=== PATIENT | male | born 1975 | race Two or more races ===

== ENCOUNTER 2023-12-31 09:40 | Emergency (ER) | payer OTHER ==
[~2023-12-31] VITALS: Ht 180.3 cm; Wt 101.0 kg
[2023-12-31 14:00] VITALS: PULSE 88; RESP 20; O2SAT 97
[2023-12-31 14:09] LABS: Basophils # (auto) 0 10 ^3/uL (0-0.2); Basophils % (auto) 0.4 % (0.0-2.0); Eosinophils # (auto) 0.1 10 ^3/uL (0-0.8); Eosinophils % (auto) 0.6 % (0.0-7.0); Hemoglobin 9.1 g/dL (13.5-17.5); Lymphocytes # (auto) 0.8 10 ^3/uL (0.4-5.4); Lymphocytes % (auto) 9.6 % (10.0-50.0); Mean Corpuscular Hemoglobin 29.3 pg (28.0-32.0); Mean Corpuscular Hgb Conc. 35.2 g/dL (32.0-36.0); Mean Corpuscular Volume 83.4 fL (80.0-100.0); Monocytes # (auto) 0.7 10 ^3/uL (0-1.3); Monocytes % (auto) 9.3 % (0.0-12.0); Neutrophils # (auto) 6.3 10 ^3/uL (1.6-8.6); Neutrophils % (auto) 80.1 % (37.0-80.0); Red Blood Cells 3.12 10^6/uL (4.5-5.90); Red Cell Distribution Width 14.2 % (11.8-14.3); White Blood Cell 7.9 10^3/uL (4.4-10.8)
[2023-12-31 14:20] LABS: Chloride 106 mmol/L (98-107); Potassium 3.7 mmol/L (3.5-5.1); Sodium 139 mmol/L (136-145)
[2023-12-31 14:21] LABS: Anion Gap 7 (5-15); Calcium 9.2 mg/dL (8.7-10.4); Carbon Dioxide 26 mmol/L (20-30)
[2023-12-31 14:26] LABS: BUN/Creatinine Ratio 12.3 (10.0-20.0); Blood Urea Nitrogen 9 mg/dL (9-23); Glucose 155 mg/dL (74-106)
[2023-12-31] MEDS: IOHEXOL 300 MG/ML 100ML BOTTLE IJ ONE (15:45)
[2023-12-31 16:40] VITALS: BP 154/89; PULSE 84; RESP 16; TEMP 97.4; O2SAT 96
== END 2023-12-31 17:32 | disposition short-term general hospital (02) ==
LOC: ER 09:40
DX: S36.039A Unspecified laceration of spleen, initial encounter (principal); Z88.1 Allergy status to other antibiotic agents; V89.2XXA Person injured in unspecified motor-vehicle accident, traffic, initial encounter; Y93.89 Activity, other specified; Y92.89 Other specified places as the place of occurrence of the external cause; Y99.8 Other external cause status
CPT/HCPCS: 36415; 71250; 74176; 74177; 80048; 85025; 99285; Q9967

== ENCOUNTER 2024-04-18 12:43 | Observation (INO) | payer OTHER ==
[~2024-04-18] VITALS: Ht 175.3 cm; Wt 102.6 kg
--- NOTE | 2024-04-18 14:16 | ED.PDOC ---
Musculoskeletal HPI Comments HPI: Poor Historian. 49-year-old male presents to emergency department for two day history of noticing left groin mass which she calls lymph node and associated diffuse left lower extremity pain. Patient ambulating independently ED. Denies any other associated symptoms. This never happened before. PMH: denies, PSH: spleen rupture SOCIAL HISTORY: denies tobacco use, endorses etoh use, denies drug use MEDS; denies ALLERGIES; nkda VITALS; TEMP: 98.6 F HEART RATE; 89 02 SAT; 98% on room air RR; 20 BP; 120/75 REVIEW OF SYSTEMS: CONSTITUTIONAL: Denies acute: fever, diaphoresis, chills, generalized weakness. HEAD: Denies acute: headache, photophobia Eyes: Denies acute: Double vision, vision loss, eye pain, eye discharge. EARS: Denies acute: tinnitus, hearing loss, ear discharge, ear pain, THROAT: Denies acute: sore throat, swelling, difficulty swallowing , pain with swallowing, change in voice. NECK: Denies acute: neck pain, neck swelling, stiff neck. HEART: Denies acute : chest pain, palpitations, LUNGS: Denies acute: SOB, wheezing, cough, hemoptysis ABDOMEN: Denies acute: abdominal pain, Nausea, Vomiting, diarrhea, melena , hematemesis, hematochezia SKIN: Denies acute: rash, redness, lesions, itchiness. EXTREMITIES: Denies acute: calf pain, numbness, tingling, weakness, Denies acute: Low back pain. Neuro: Denies acute: focal neurological deficit, motor or sensory focal neurological deficit, tremors, seizure like activity, confusion, dizziness, change in mental status, loss of bowel or bladder function, cauda equina like symptoms. : Denies acute: dysuria, hematuria, flank pain, increase in urinary frequency. PSYCH: Denies acute: hallucination, suicidal ideation, homicidal ideation. PHYSICAL EXAM: General: no acute distress, awake and alert. Head: normocephalic, atraumatic. Neck: supple, trachea is midline, no swelling. Throat: Normal phonation. Eyes:, no erythema, no purulent discharge, no proptosis, no icterus. Heart: regular rate, regular rhythm, no significant murmur appreciated. Lungs: no apparent respiratory distress, Able to speak in full sentences. No wheezing, no rhonchi, no crackles. No stridors Clear to auscultation bilaterally. Abdomen: non tender to palpation, non distended, soft, no guarding, no rebound, + bowel sounds. Noted left inguinal palpable mass tender to palpation. Neuro: Awake, Alert, oriented to name, self, situation, follows commands GCS=15. Speech is normal. Skin: no petechia, no purpura, no cyanosis, non-pale, not jaundice. Lower extremities: --3/4 left lower extremity - Pitting edema no deformity, no focal swelling, no calf TTP. Pedal pulses are palpable. Patient is neurovascularly intact in the affected extremity. Motor and sensory are present. Makes eye contact. moves all four extremities. Face: no apparent facial droop. Ambulating in the ED independently. Time Seen by MD: 14:33 Reviewed Notes: Nurses Notes, Allergies Allergies: Coded Allergies: NO KNOWN ALLERGIES (Unverified , 04/18/24) Information Source: Patient, Spouse Mode of Arrival: Ambulatory Brought in by: spouse Location: Left Past Medical History PAST MEDICAL HISTORY: Denies Surgical History (Other): spleen Family History Family History: Reviewed,noncontributory to illness Social History Smoker: Non-Smoker Alcohol: Occasionally Drugs: Denies Drug Use Lives In: Home Was a procedure done? Was a procedure done?: No Differential Diagnosis EXT Differential Diagnosis: Cellulitis, CHF, Deep Vein Thrombosis, Compartment Syndrome, Fracture, Sprain, Gout, DJD, Myocardial Infarction, Contusion, Strain, Septic, Neurovascular injury, Arthritis, Other (Leg swellingDdx include but not limited to DVT, ischemic limb, pitting edema, volume overload, CHF, cellulitis, hematoma, compartment syndrome, dependent edema, venous stasis.) X-Ray, Labs, Meds, VS Vital Signs Date Time Temp Pulse Resp B/P (MAP) Pulse Ox O2 Delivery O2 Flow Rate FiO2 04/18/24 13:28 98.6 89 20 120/75 (90) 98 Lab Test 04/18/24 15:17 04/18/24 14:30 Range/Units Troponin I High Sensitivity < 3 L < 3 L </=54 ng/L White Blood Count 7.5 4.4-10.8 10^3/uL Red Blood Count 4.43 L 4.5-5.90 10^6/uL Hemoglobin 12.8 L 13.5-17.5 g/dL Hematocrit 36.8 L 41.0-53.0 % Mean Corpuscular Volume 83.1 80.0-100.0 fL Mean Corpuscular Hemoglobin 28.9 28.0-32.0 pg Mean Corpuscular Hemoglobin Concent 34.8 32.0-36.0 g/dL Red Cell Distribution Width 15.5 H 11.8-14.3 % Platelet Count 262 140-450 10^3/uL Mean Platelet Volume 8.2 6.9-10.8 fL Neutrophils (%) (Auto) 73.5 37.0-80.0 % Lymphocytes (%) (Auto) 11.1 10.0-50.0 % Monocytes (%) (Auto) 10.7 0.0-12.0 % Eosinophils (%) (Auto) 4.0 0.0-7.0 % Basophils (%) (Auto) 0.7 0.0-2.0 % Neutrophils # (Auto) 5.5 1.6-8.6 10 ^3/uL Lymphocytes # (Auto) 0.8 0.4-5.4 10 ^3/uL Monocytes # (Auto) 0.8 0-1.3 10 ^3/uL Eosinophils # (Auto) 0.3 0-0.8 10 ^3/uL Basophils # (Auto) 0.1 0-0.2 10 ^3/uL Nucleated Red Blood Cells 0.1 % D-Dimer, Quantitative 0.39 0.0-0.49 mg/L FEU Sodium Level 141 136-145 mmol/L Potassium Level 3.8 3.5-5.1 mmol/L Chloride Level 107 98-107 mmol/L Carbon Dioxide Level 26 20-31 mmol/L Anion Gap 8 5-15 Blood Urea Nitrogen 9 9-23 mg/dL Creatinine 0.89 0.700-1.30 mg/dL Glomerular Filtration Rate Calc 104 >90 mL/min BUN/Creatinine Ratio 10.1 10.0-20.0 Serum Glucose 144 H 74-106 mg/dL Lactic Acid Level 0.8 0.4-2.0 mmol/L Calcium Level 9.6 8.7-10.4 mg/dL Total Bilirubin 1.0 0.2-1.0 mg/dL Aspartate Amino Transferase (AST) 15 13-40 U/L Alanine Aminotransferase (ALT) 33 7-40 U/L Alkaline Phosphatase 178 H 46-116 U/L B-Type Natriuretic Peptide 56.21 0-100 pg/mL Total Protein 7.2 5.7-8.2 g/dL Albumin 4.2 3.2-4.8 g/dL [facility] [id number] [place] [id number] Ph: [phone] DIAGNOSTIC IMAGING Diagnostic Imaging Report : [id number] Signed PATIENT: SANDRA BROOKEACCT: [id number] UNIT: [id number] : 1975 LOC: ER ROOM / BED: / AGE / SEX: 49 / M ADM STATUS: REG ER SERVICE 19 ORDERING PHYSICIAN: ASHVIN PERDOMO DO PROCEDURE(s): LLDVT - LT Lower DVT REASON: Leg pain and swelling ORDER NUMBER(s): [id number], ACCESSION NUMBER(s): [id number] Procedure: US LT Lower DVT Study Date and Requested Time: 04/18/2024 02:53 PM History: Leg pain and swelling Comparison: None Technique: Multiple high resolution velásquez-scale images with and without compression obtained of the left lower extremity veins, including the common femoral vein, deep femoral vein, proximal mid and distal superficial femoral vein, and popliteal vein. Additional limited images of the greater saphenous vein also obtained. Augmentation performed as indicated. Color and spectral doppler flow images obtained as indicated. Findings: No visible intraluminal venous thrombus. No evidence of incompressibility or a bnormal color or spectral Doppler flow visualized in the left lower extremity veins including, the common femoral vein, deep femoral vein, proximal mid and distal superficial femoral vein, and popliteal vein. Greater saphenous vein grossly unremarkable. Prominent bilateral inguinal lymph nodes measuring up to 2.8 cm on the left and 2.6 cm on the right in short axis Impression: No sonographic evidence of left lower extremity deep venous thrombosis. ATED BY: MABLE BAEZ DO DICTATED DATE/TIME: 04/18/24 1523 SIGNED BY: MABLE BAEZ DO SIGNED DATE/TIME: 04/18/24 152 CC: [facility] [id number] [place] [id number] Ph: [phone] DIAGNOSTIC IMAGING Diagnostic Imaging Report : [id number] Signed PATIENT: SANDRA BROOKEACCT: [id number] UNIT: [id number] : 1975 LOC: ER ROOM / BED: / AGE / SEX: 49 / M ADM STATUS: REG ER SERVICE [id number] ORDERING PHYSICIAN: ASHVIN PERDOMO DO PROCEDURE(s): CTAAA - CT ANGIO ABD AORTA W RUN OFF REASON: LLE pain swelling ORDER NUMBER(s): [id number], ACCESSION NUMBER(s): [id number] Examination: CT CT ANGIO ABD AORTA W RUN OFF CLINICAL HISTORY: LLE pain swelling Comparison: None Technique: Using helical technique, CT data from the lower abdomen through the toes was obtained during rapid IV contrast infusion. The examination was timed to the arterial system to generate a CT angiographic study. 3D images were generated at an independent work station. Dose reduction techniques included automated exposure control. Radiation Dose Information: CT Dose: CTDI volume is 27.63 mGy. Dose-length product is 1545.21 mGy*cm CONTRAST: Type of contrast: Omni 350 Contrast injected: 100 ml Findings: Distal abdominal aorta: Normal caliber, patent NICK: Patent Right lower extremity: Common iliac artery: Patent External iliac artery: Patent Internal iliac artery: Patent Common femoral artery: Patent Profunda femoral artery: Patent Superficial femoral artery: Patent Popliteal artery: Patent Anterior tibial artery: Patent Peroneal tibial trunk: Patent Peroneal artery: Patent Posterior tibial artery: Patent Dorsalis pedis artery: Patent Left lower extremity: Common iliac artery: Patent External iliac artery: Patent Internal iliac artery: Patent Common femoral artery: Patent Profunda femoral artery: Patent Superficial femoral artery: Patent Popliteal artery: Patent Anterior tibial artery: Patent Peroneal tibial trunk: Patent Peroneal artery: Patent Posterior tibial artery: Patent Dorsalis pedis artery: Patent Pelvis: Bladder: Normal. GI System: Stomach, small bowel, and large bowel are normal in caliber without w all thickening or dilation Appendix is normal. Lymph nodes: Extensive retroperitoneal, iliac chain, and bilateral inguinal lym phadenopathy. Largest lymph node is left external iliac and measures up to 38 mm. Peritoneal cavity and surface: No free fluid. No pneumoperitoneum. Soft Tissues: Left lower extremity edema. Reproductive Organs: Normal. Bones: No acute fracture or aggressive osseous lesion. Impression: Right Lower Extremity: 1. Patent inflow 2. Patent outflow 3. Patent 3 vessel runoff Left Lower Extremity: 1. Patent inflow 2. Patent outflow 3. Patent 3 vessel runoff Pelvis: 1. Extensive retroperitoneal, iliac chain, and inguinal lymphadenopathy concerning for lymphoproliferative disorder. Recommend ultrasound-guided biopsy of an inguinal lymph node for tissue diagnosis. Subcutaneous edema in the left lower leg. HS:Y ATED BY: GET VERMA MD DICTATED DATE/TIME: 04/18/241701 SIGNED BY: GET VERMA MD SIGNED DATE/TIME: 04/18/241701 CC: Time of 1ST Reevaluation: 19:54 (The case was discussed with the admitting team (HPI, physical exam, labs and diagnostic tests that were available at the time of disposition, ED course, treatment plan) on the phone. They requested that I consult General surgery 1st and if they are willing to do the biopsy she will admit. Dr. Saavedra. General surgery was paged at this time) Reevaluation 1ST: Unchanged Time of 2ND Reevaluation: 20:06 (I discussed the case with the general surgeon on the phone Dr. GARIBAY. He said this she would go to Interventional Radiology 1st and if they are unable to need complete excision lymph node then that is when he can be consulted. I called Dr. Saavedra to notify her.) Time of 3RD Reevaluation: 20:24 (Dr. Saavedra agreed to admit and she will consult Interventional Radiology.) Reevaluation 3RD: Unchanged Patient Education/Counseling: Diagnosis, Treatment Family Education/Counseling: Diagnosis, Treatment Departure 1 Departure Time of Disposition: 17:52 Impression: Primary Impression: Lymphoproliferative disorder Additional Impression: Left leg pain Disposition: 09 ADMITTED INPATIENT Admit to: Tele Condition: Guarded Discharged With: Self Critical Care Note Critical Care Time?: No I personally scribed for ASHVIN PERDOMO DO ([facility]) on 04/18/24 at 14:16. Electronically submitted by Shala WORRELL). I personally scribed for ASHVIN PERDOMO DO ([facility]) on 04/18/24 at 14:35. Electronically submitted by [facility] Figueroa ([facility] I personally scribed for ASHVIN PERDOMO DO ([facility]) on 04/18/24 at 15:55. Electronically submitted by Shala Figueroa ([facility]). I personally scribed for ASHVIN PERDOMO DO ([facility]) on 04/18/24 at 19:00. Electronically submitted by Shala Figueroa ([facility]). ASHVIN PERDOMO DO Apr 18, 2024 14:16
[2024-04-18 14:56] LABS: Basophils # (auto) 0.1 10 ^3/uL (0-0.2); Basophils % (auto) 0.7 % (0.0-2.0); Eosinophils # (auto) 0.3 10 ^3/uL (0-0.8); Hematocrit 36.8 % (41.0-53.0); Hemoglobin 12.8 g/dL (13.5-17.5); Lymphocytes # (auto) 0.8 10 ^3/uL (0.4-5.4); Lymphocytes % (auto) 11.1 % (10.0-50.0); Mean Corpuscular Hemoglobin 28.9 pg (28.0-32.0); Mean Corpuscular Hgb Conc. 34.8 g/dL (32.0-36.0); Mean Corpuscular Volume 83.1 fL (80.0-100.0); Monocytes # (auto) 0.8 10 ^3/uL (0-1.3); Monocytes % (auto) 10.7 % (0.0-12.0); Neutrophils # (auto) 5.5 10 ^3/uL (1.6-8.6); Neutrophils % (auto) 73.5 % (37.0-80.0); Nucleated Red Blood Cells % 0.1 %; Platelet Count (auto) 262 10^3/uL (140-450); Red Blood Cells 4.43 10^6/uL (4.5-5.90); Red Cell Distribution Width 15.5 % (11.8-14.3); White Blood Cell 7.5 10^3/uL (4.4-10.8)
[2024-04-18 15:11] LABS: Alanine Aminotransferase 33 U/L (7-40); Albumin 4.2 g/dL (3.2-4.8); Alkaline Phosphatase 178 U/L (46-116); Anion Gap 8 (5-15); BUN/Creatinine Ratio 10.1 (10.0-20.0); Blood Urea Nitrogen 9 mg/dL (9-23); Calcium 9.6 mg/dL (8.7-10.4); Carbon Dioxide 26 mmol/L (20-31); Chloride 107 mmol/L (98-107); Glucose 144 mg/dL (74-106); Potassium 3.8 mmol/L (3.5-5.1); Sodium 141 mmol/L (136-145)
[2024-04-18 15:12] LABS: Aspartate Aminotransferase 15 U/L (13-40); Total Protein 7.2 g/dL (5.7-8.2)
[2024-04-18] MEDS: IOHEXOL 350 MG/ML 100ML IJ ONE (15:24)
--- NOTE | 2024-04-18 15:26 | DVH ---
Procedure: US LT Lower DVT Study Date and Requested Time: 04/18/2024 02:53 PM History: Leg pain and swelling Comparison: None Technique: Multiple high resolution velásquez-scale images with and without compression obtained of the le ft lower extremity veins, including the common femoral vein, deep femoral vein, proximal mid and dist al superficial femoral vein, and popliteal vein. Additional limited images of the greater saphenous v ein also obtained. Augmentation performed as indicated. Color and spectral doppler flow images obtain ed as indicated. Findings: No visible intraluminal venous thrombus. No evidence of incompressibility or abnormal color or spectr al Doppler flow visualized in the left lower extremity veins including, the common femoral vein, deep femoral vein, proximal mid and distal superficial femoral vein, and popliteal vein. Greater saphenou s vein grossly unremarkable. Prominent bilateral inguinal lymph nodes measuring up to 2.8 cm on the left and 2.6 cm on the right i n short axis Impression: No sonographic evidence of left lower extremity deep venous thrombosis.
--- NOTE | 2024-04-18 17:06 | DVH ---
Examination: CT CT ANGIO ABD AORTA W RUN OFF CLINICAL HISTORY: LLE pain swelling Comparison: None Technique: Using helical technique, CT data from the lower abdomen through the toes was obtained duri ng rapid IV contrast infusion. The examination was timed to the arterial system to generate a CT reena ographic study. 3D images were generated at an independent work station. Dose reduction techniques in cluded automated exposure control. Radiation Dose Information: CT Dose: CTDI volume is 27.63 mGy. Dose-length product is 1545.21 mGy*cm CONTRAST: Type of contrast: Omni 350 Contrast injected: 100 ml Findings: Distal abdominal aorta: Normal caliber, patent NICK: Patent Right lower extremity: Common iliac artery: Patent External iliac artery: Patent Internal iliac artery: Patent Common femoral artery: Patent Profunda femoral artery: Patent Superficial femoral artery: Patent Popliteal artery: Patent Anterior tibial artery: Patent Peroneal tibial trunk: Patent Peroneal artery: Patent Posterior tibial artery: Patent Dorsalis pedis artery: Patent Left lower extremity: Common iliac artery: Patent External iliac artery: Patent Internal iliac artery: Patent Common femoral artery: Patent Profunda femoral artery: Patent Superficial femoral artery: Patent Popliteal artery: Patent Anterior tibial artery: Patent Peroneal tibial trunk: Patent Peroneal artery: Patent Posterior tibial artery: Patent Dorsalis pedis artery: Patent Pelvis: Bladder: Normal. GI System: Stomach, small bowel, and large bowel are normal in caliber without wall thickening or dil ation Appendix is normal. Lymph nodes: Extensive retroperitoneal, iliac chain, and bilateral inguinal lymphadenopathy. Largest lymph node is left external iliac and measures up to 38 mm. Peritoneal cavity and surface: No free fluid. No pneumoperitoneum. Soft Tissues: Left lower extremity edema. Reproductive Organs: Normal. Bones: No acute fracture or aggressive osseous lesion. Impression: Right Lower Extremity: 1. Patent inflow 2. Patent outflow 3. Patent 3 vessel runoff Left Lower Extremity: 1. Patent inflow 2. Patent outflow 3. Patent 3 vessel runoff Pelvis: 1. Extensive retroperitoneal, iliac chain, and inguinal lymphadenopathy concerning for lymphoprolifer ative disorder. Recommend ultrasound-guided biopsy of an inguinal lymph node for tissue diagnosis. S ubcutaneous edema in the left lower leg. HS:Y
[2024-04-18] MEDS ORDERED: NITROGLYCERIN 0.4 MG SL TAB SL PRN (22:30)
[2024-04-18] MEDS ORDERED: MORPHINE SULFATE INJ 2 MG/ml SYRG IV PRN (22:30)
[2024-04-18 22:52] LABS: Basophils # (auto) 0.1 10 ^3/uL (0-0.2); Basophils % (auto) 0.7 % (0.0-2.0); Eosinophils # (auto) 0.3 10 ^3/uL (0-0.8); Eosinophils % (auto) 3.8 % (0.0-7.0); Hematocrit 36.2 % (41.0-53.0); Hemoglobin 12.5 g/dL (13.5-17.5); Lymphocytes # (auto) 0.7 10 ^3/uL (0.4-5.4); Lymphocytes % (auto) 9.6 % (10.0-50.0); Mean Corpuscular Hemoglobin 28.8 pg (28.0-32.0); Mean Corpuscular Hgb Conc. 34.5 g/dL (32.0-36.0); Mean Corpuscular Volume 83.3 fL (80.0-100.0); Monocytes # (auto) 0.7 10 ^3/uL (0-1.3); Monocytes % (auto) 9.7 % (0.0-12.0); Neutrophils # (auto) 5.9 10 ^3/uL (1.6-8.6); Neutrophils % (auto) 76.2 % (37.0-80.0); Nucleated Red Blood Cells % 0.1 %; Platelet Count (auto) 258 10^3/uL (140-450); Red Blood Cells 4.35 10^6/uL (4.5-5.90); Red Cell Distribution Width 15.8 % (11.8-14.3); White Blood Cell 7.7 10^3/uL (4.4-10.8)
[2024-04-18 23:10] LABS: Alanine Aminotransferase 31 U/L (7-40); Albumin 4.4 g/dL (3.2-4.8); Alkaline Phosphatase 178 U/L (46-116); Anion Gap 6 (5-15); Aspartate Aminotransferase 15 U/L (13-40); BUN/Creatinine Ratio 13.1 (10.0-20.0); Blood Urea Nitrogen 11 mg/dL (9-23); Calcium 9.8 mg/dL (8.7-10.4); Carbon Dioxide 29 mmol/L (20-31); Chloride 106 mmol/L (98-107); Glucose 191 mg/dL (74-106); Potassium 3.7 mmol/L (3.5-5.1); Sodium 141 mmol/L (136-145)
[2024-04-18 23:11] LABS: Total Protein 7.1 g/dL (5.7-8.2)
[2024-04-18 23:44] VITALS: PULSE 80; RESP 23; O2SAT 96
[2024-04-18] MEDS: FUROSEMIDE 40 MG/4 ML VIAL IV ONE (23:51)
[2024-04-18] MEDS: SOD CHL 0.45% 1,000 ML IV ONE (23:52)
[2024-04-19 02:17] LABS: Urine Bacteria None Seen /hpf (None Seen)
[2024-04-19 02:21] LABS: Urine Blood Negative /uL (Negative); Urine Clarity Clear (Clear); Urine Color Colorless (Yellow); Urine Hyaline Cast FEW /lpf (0 - 2); Urine Mucus FEW (None Seen); Urine Protein, UAD Negative (Negative); Urine Specific Gravity 1.008 (1.001-1.035); Urine Urobilinogen Normal (Negative); Urine WBC <1 /hpf (0 - 3)
[2024-04-19 06:31] LABS: Basophils # (auto) 0 10 ^3/uL (0-0.2); Basophils % (auto) 0.5 % (0.0-2.0); Eosinophils # (auto) 0.3 10 ^3/uL (0-0.8); Eosinophils % (auto) 5.6 % (0.0-7.0); Hematocrit 36.5 % (41.0-53.0); Hemoglobin 12.5 g/dL (13.5-17.5); Lymphocytes # (auto) 0.7 10 ^3/uL (0.4-5.4); Lymphocytes % (auto) 11.3 % (10.0-50.0); Mean Corpuscular Hemoglobin 28.6 pg (28.0-32.0); Mean Corpuscular Hgb Conc. 34.1 g/dL (32.0-36.0); Mean Corpuscular Volume 83.8 fL (80.0-100.0); Monocytes # (auto) 0.7 10 ^3/uL (0-1.3); Monocytes % (auto) 11.7 % (0.0-12.0); Neutrophils # (auto) 4.3 10 ^3/uL (1.6-8.6); Neutrophils % (auto) 70.9 % (37.0-80.0); Nucleated Red Blood Cells % 0.1 %; Platelet Count (auto) 236 10^3/uL (140-450); Red Blood Cells 4.35 10^6/uL (4.5-5.90); Red Cell Distribution Width 15.9 % (11.8-14.3); White Blood Cell 6.1 10^3/uL (4.4-10.8)
[2024-04-19 06:47] LABS: Alanine Aminotransferase 27 U/L (7-40); Albumin 3.9 g/dL (3.2-4.8); Alkaline Phosphatase 162 U/L (46-116); Anion Gap 9 (5-15); Aspartate Aminotransferase 17 U/L (13-40); BUN/Creatinine Ratio 12.2 (10.0-20.0); Bilirubin, Total 0.7 mg/dL (0.2-1.0); Blood Urea Nitrogen 10 mg/dL (9-23); Calcium 9.3 mg/dL (8.7-10.4); Carbon Dioxide 25 mmol/L (20-31); Chloride 108 mmol/L (98-107); Glucose 179 mg/dL (74-106); Potassium 3.5 mmol/L (3.5-5.1); Sodium 142 mmol/L (136-145); Total Protein 6.4 g/dL (5.7-8.2)
[2024-04-19 07:30] VITALS: PULSE 75; RESP 18; O2SAT 97
--- NOTE | 2024-04-19 09:30 | DVHHP2 ---
Admitting Diagnosis: EXTRACTION OPERATOR, left leg swelling and pain History of Present Illness HPI 49 y.o. with h/o spleen rupture arrived to the ED c/o left leg swelling, pain, redness, left groin lump that he recently noticed. CTA shows "Pelvis: Extensive retroperitoneal, iliac chain, and inguinal lymphadenopathy concerning for lymphoproliferative disorder. Recommend ultrasound-guided biopsy of an inguinal lymph node for tissue diagnosis. Subcutaneous edema in the left lower leg." ER MD consulted a surgeon, who recommended LN biopsy by IR. Review of Systems Musculoskeletal: Leg pain H&P Exam Vital Signs Vital Signs Date Time Temp Pulse Resp B/P (MAP) Pulse Ox O2 Delivery O2 Flow Rate FiO2 04/19/24 07:30 75 18 97 Room Air* 0 21 04/19/24 07:30 98.1 117/61 (79) 98.1 General Appeara: Obese Head Exam: Normal inspection Neck Exam: Normal inspection Eye Exam: bilateral eye PERRL, bilateral eye EOMI Pulmonary/Respiratory: Lungs clear Cardiovascular/Chest: Regular rate Legs: left leg swelling Neuro/Mental St: Alert, Oriented Labs/Xrays Labs Test 04/19/24 05:52 04/19/24 02:09 04/18/24 15:17 04/18/24 14:30 Range/Units White Blood Count 6.1 4.4-10.8 10^3/uL Red Blood Count 4.35 L 4.5-5.90 10^6/uL Hemoglobin 12.5 L 13.5-17.5 g/dL Hematocrit 36.5 L 41.0-53.0 % Mean Corpuscular Volume 83.8 80.0-100.0 fL Mean Corpuscular Hemoglobin 28.6 28.0-32.0 pg Mean Corpuscular Hemoglobin Concent 34.1 32.0-36.0 g/dL Red Cell Distribution Width 15.9 H 11.8-14.3 % Platelet Count 236 140-450 10^3/uL Mean Platelet Volume 8.5 6.9-10.8 fL Neutrophils (%) (Auto) 70.9 37.0-80.0 % Lymphocytes (%) (Auto) 11.3 10.0-50.0 % Monocytes (%) (Auto) 11.7 0.0-12.0 % Eosinophils (%) (Auto) 5.6 0.0-7.0 % Basophils (%) (Auto) 0.5 0.0-2.0 % Neutrophils # (Auto) 4.3 1.6-8.6 10 ^3/uL Lymphocytes # (Auto) 0.7 0.4-5.4 10 ^3/uL Monocytes # (Auto) 0.7 0-1.3 10 ^3/uL Eosinophils # (Auto) 0.3 0-0.8 10 ^3/uL Basophils # (Auto) 0 0-0.2 10 ^3/uL Nucleated Red Blood Cells 0.1 % Sodium Level 142 136-145 mmol/L Potassium Level 3.5 3.5-5.1 mmol/L Chloride Level 108 H 98-107 mmol/L Carbon Dioxide Level 25 20-31 mmol/L Anion Gap 9 5-15 Blood Urea Nitrogen 10 9-23 mg/dL Creatinine 0.82 0.700-1.30 mg/dL Glomerular Filtration Rate Calc 107 >90 mL/min BUN/Creatinine Ratio 12.2 10.0-20.0 Serum Glucose 179 H 74-106 mg/dL Calcium Level 9.3 8.7-10.4 mg/dL Total Bilirubin 0.7 0.2-1.0 mg/dL Aspartate Amino Transferase (AST) 17 13-40 U/L Alanine Aminotransferase (ALT) 27 7-40 U/L Alkaline Phosphatase 162 H 46-116 U/L Total Protein 6.4 5.7-8.2 g/dL Albumin 3.9 3.2-4.8 g/dL Urine Color Colorless Yellow Urine Clarity Clear Clear Urine pH 5.0 5.0-9.0 Urine Specific [place] 1.008 1.001-1.035 Urine Protein Negative Negative Urine Ketones Negative Negative Urine Blood Negative Negative /uL Urine Nitrite Negative Negative Urine Bilirubin Negative Negative Urine Urobilinogen Normal Negative mg/dL Urine Leukocyte Esterase Negative Negative /uL Urine RBC None seen 0 - 3 /hpf Urine WBC <1 0 - 3 /hpf Urine Squamous Epithelial Cells None seen <5 /hpf Urine Bacteria None seen None Seen /hpf Urine Hyaline Casts Few 0 - 2 /lpf Urine Mucus Few None Seen Urine Glucose Normal Normal mg/dL Troponin I High Sensitivity < 3 L </=54 ng/L D-Dimer, Quantitative 0.39 0.0-0.49 mg/L FEU Lactic Acid Level 0.8 0.4-2.0 mmol/L B-Type Natriuretic Peptide 56.21 0-100 pg/mL Assessment/Plan Problem List: (1) Left leg pain (2) Lymphoproliferative disorder Plan LN biopsy by IR, electrolyte correction Plan discussed with: Patient NAKUL ARRIAGA MD Apr 19, 2024 09:30
[2024-04-19 10:26] LABS: INR 1.11 (0.9-1.15); Prothrombin Time 11.7 sec (9.3-11.8)
[2024-04-19 17:30] VITALS: BP 133/76; PULSE 86; RESP 18; O2SAT 97
--- NOTE | 2024-04-19 17:38 | DVHDS2 ---
Discharge Summary Date of Admission Apr 18, 2024 at 22:21 Date of Discharge: Apr 19, 2024 Labs/Diagnostic Data: Laboratory Results Test 04/19/24 05:52 04/19/24 02:09 04/18/24 15:17 04/18/24 14:30 White Blood Count 6.1 10^3/uL (4.4-10.8) Red Blood Count 4.35 10^6/uL (4.5-5.90) Hemoglobin 12.5 g/dL (13.5-17.5) Hematocrit 36.5 % (41.0-53.0) Mean Corpuscular Volume 83.8 fL (80.0-100.0) Mean Corpuscular Hemoglobin 28.6 pg (28.0-32.0) Mean Corpuscular Hemoglobin Concent 34.1 g/dL (32.0-36.0) Red Cell Distribution Width 15.9 % (11.8-14.3) Platelet Count 236 10^3/uL (140-450) Mean Platelet Volume 8.5 fL (6.9-10.8) Neutrophils (%) (Auto) 70.9 % (37.0-80.0) Lymphocytes (%) (Auto) 11.3 % (10.0-50.0) Monocytes (%) (Auto) 11.7 % (0.0-12.0) Eosinophils (%) (Auto) 5.6 % (0.0-7.0) Basophils (%) (Auto) 0.5 % (0.0-2.0) Neutrophils # (Auto) 4.3 10 ^3/uL (1.6-8.6) Lymphocytes # (Auto) 0.7 10 ^3/uL (0.4-5.4) Monocytes # (Auto) 0.7 10 ^3/uL (0-1.3) Eosinophils # (Auto) 0.3 10 ^3/uL (0-0.8) Basophils # (Auto) 0 10 ^3/uL (0-0.2) Nucleated Red Blood Cells 0.1 % Prothrombin Time 11.7 sec (9.3-11.8) Prothrombin Time INR 1.11 (0.9-1.15) Sodium Level 142 mmol/L (136-145) Potassium Level 3.5 mmol/L (3.5-5.1) Chloride Level 108 mmol/L (98-107) Carbon Dioxide Level 25 mmol/L (20-31) Anion Gap 9 (5-15) Blood Urea Nitrogen 10 mg/dL (9-23) Creatinine 0.82 mg/dL (0.700-1.30) Glomerular Filtration Rate Calc 107 mL/min (>90) BUN/Creatinine Ratio 12.2 (10.0-20.0) Serum Glucose 179 mg/dL (74-106) Calcium Level 9.3 mg/dL (8.7-10.4) Total Bilirubin 0.7 mg/dL (0.2-1.0) Aspartate Amino Transferase (AST) 17 U/L (13-40) Alanine Aminotransferase (ALT) 27 U/L (7-40) Alkaline Phosphatase 162 U/L (46-116) Total Protein 6.4 g/dL (5.7-8.2) Albumin 3.9 g/dL (3.2-4.8) Urine Color Colorless (Yellow) Urine Clarity Clear (Clear) Urine pH 5.0 (5.0-9.0) Urine Specific [place] 1.008 (1.001-1.035) Urine Protein Negative (Negative) Urine Ketones Negative (Negative) Urine Blood Negative /uL (Negative) Urine Nitrite Negative (Negative) Urine Bilirubin Negative (Negative) Urine Urobilinogen Normal mg/dL (Negative) Urine Leukocyte Esterase Negative /uL (Negative) Urine RBC None seen /hpf (0 - 3) Urine WBC <1 /hpf (0 - 3) Urine Squamous Epithelial Cells None seen /hpf (<5) Urine Bacteria None seen /hpf (None Seen) Urine Hyaline Casts Few /lpf (0 - 2) Urine Mucus Few (None Seen) Urine Glucose Normal mg/dL (Normal) Troponin I High Sensitivity < 3 ng/L (</=54) D-Dimer, Quantitative 0.39 mg/L FEU (0.0-0.49) Lactic Acid Level 0.8 mmol/L (0.4-2.0) B-Type Natriuretic Peptide 56.21 pg/mL (0-100) Other Laboratory Tests 04/19/24 05:52 Brief Hx & Hospital Course: Patient is a 49-year-old male with no reported past medical history who presented with complaints of left leg/groin pain. CT angio of abdominal aorta was done which revealed extensive retroperitoneal, iliac chain, inguinal lymphadenopathy concerning for lymphoproliferative disorder. There is also some subcutaneous edema in the left lower leg. Patient was given morphine, NS, and Lasix 40 mg IV. Patient reported significant improvement in his pain. CBC did not reveal any leukocytosis. Hemoglobin was about 12.5. CMP was within normal limits with the exception of alkaline phosphatase of 178. Interventional radiology was consulted for lymph node biopsy. Unfortunately, due to scheduling the soonest that the patient could have had the biopsy done would be 4 days from admission on a Monday. I discussed this finding with the patient and the importance of completing biopsy in a timely manner to rule out possible underlying malignancy. I informed the patient that he will need to follow-up with oncology once the biopsy is completed. Given the delay in completing the procedure, it was discussed having it done on outpatient basis, STAT. Patient understood that this may result in a delay in receiving his diagnosis and treatment. He requested to follow-up outpatient, given the risks. I informed the patient that [facility] case management will arrange a stat appointment with interventional radiology and referral to oncology. I gave the patient ER return precautions if his symptoms worsen or do not improve. Patient notes that he feels much better prior to discharge with resolution of his pain. No hemodynamic instability noted. No immediate life threatening lab findings noted. Patient medically stable to leave the hospital. I advised the patient to take [id number] NSAIDs or Tylenol as needed for any recurrence of pain. Patient was in agreement with the plan. Patient discharged in stable condition. [facility] case management to help arrange follow-ups. Condition at Discharge: Fair Final Diagnosis/Problems List Enlarged Lymph Nodes Lower Extremity Concerning for Malignancy Discharge Disposition: Home Discharge Instruct/Medications Diet: Regular Activity: No Restrictions, As Tolerated Follow Up/Referral: Follow up with oncology outpatient. [facility] will arrange and call you. Discharge Statement: "Patient was advised to return to the ER or call 911 if any headaches, dizziness, shortness of breath, chest pain, abdominal pain, bleeding, fevers, or worsening of medical condition. Patient was counseled about treatment plan, medications, possible side effects, patientverbalized understanding. All questions were answered to the best of my ability. This discharge took greater then 30 minutes in planning, reviewing documentation, counseling the patient, and discussing with other team members." ASSESSMENT ASSESSMENT Assessment Enlarged Lymph Nodes Lower Extremity CURTIS DOE DO Apr 19, 2024 17:38
== END 2024-04-19 18:30 | disposition home or self-care (01) ==
LOC: ER 12:43 → TELE 22:21 → INTOOBSV 22:21 → MERGE 22:21 → UNDODEPER 04-19 18:27
PROVIDERS: ADMIT Internal Medicine; ATTEND Student in an Organized Health Care Education/Training Program
DX: M79.605 Pain in left leg (principal); R59.0 Localized enlarged lymph nodes; R60.9 Edema, unspecified; R19.09 Other intra-abdominal and pelvic swelling, mass and lump; Z79.899 Other long term (current) drug therapy; Z98.890 Other specified postprocedural states
CPT/HCPCS: 36415; 75635; 80053; 81001; 83605; 83880; 84484; 85025; 85379; 85610; 93971; 96361; 96374; 99284; G0378; J1940; Q9967